=== PATIENT | female | born 1950 | race Caucasian/White ===

== ENCOUNTER 2016-05-29 12:09 | Day surgery (SDC) | payer MEDICARE, BC ==
[2016-05-29 12:54] VITALS: RESP 14; TEMP 97.5
[2016-05-29 13:45] VITALS: BP 141/83; PULSE 86
--- NOTE | 2016-05-29 14:07 | US ---
ULTRASOUND GUIDED FNA THYROID BIOPSY: CLINICAL HISTORY: Request for large right and large left thyroid nodule FINDINGS: The procedure was explained to the patient. The risks, complications, benefits and alternatives were discussed and any questions were answered. Informed consent was obtained. Patient was placed supin e on the ultrasound table and prepped and draped in the usual sterile fashion. Utilizing a 25 gauge needle, five passes were made into the requested two nodules. Patient was stable throughout the procedure. Pathology is pending. All elements of maximal barrier technique were utilized. IMPRESSION: 1. Successful ultrasound guided FNA thyroid biopsy.
--- NOTE | 2016-05-29 14:49 | US ---
EXAMINATION TYPE: US thyroid st tissue head/neck DATE OF EXAM: 05/29/2016 12:43 PM COMPARISON: NONE CLINICAL HISTORY: E04.1 thyroid nodule. GLAND SIZE: Right Lobe: 5.1 x 2.5 x 2.2 cm Overall Parenchyma: heterogenous Left Lobe: 4.1 x 1.8 x 1.6 cm Overall Parenchyma: slightly heterogenous Isthmus Thickness: 0.1 cm NODULES RIGHT: # of nodules measured on right: 2 1. 3.9 X 2.6 x 1.6 cm hypoechoic solid nodule at the mid pole with well-defined margins. This nodu le is wider than tall and shows intranodular vascularity. Prior size: no prior 2. 1.8 X 2.3 x 2.0 cm Complex solid nodule at the lower pole with well-defined margins. This nodule is wider than tall and shows intranodular vascularity. Prior size: no prior LEFT: # of nodules measured on left: 2 1. 2.8 X 1.4 x 1.4 cm Complex solid nodule at the mid pole with well-defined margins. This nodule is taller than wide and shows intranodular vascularity. Echogenic focus with shadowing seen within = 1.4 mm. Cystic lesion seen within = 0.6 x 0.6 x 0.5 cm Prior size: no prior 2. 1.2 X 0.7 x 0.5 cm hypoechoic solid nodule at the upper pole with well-defined margins. This nod ule is taller than wide and shows intranodular vascularity. Prior size: No prior ISTHMUS: # of nodules measured in the isthmus: 0 TECHNOLOGIST IMPRESSION: Bilateral neck scanned, no abnormal lymphadenopathy noted. Bilateral vascul ar nodules seen. IMPRESSION: Thyroid gland is upper limits of normal in size and heterogeneous in appearance with several greater than 1 cm nodules noted bilaterally as detailed above. Dominant nodules are sample at time of study, this report will be dictated separately.
== END 2016-05-29 13:51 | disposition home or self-care (01) ==
LOC: RADPROMAIN 12:09
PROVIDERS: ATTEND Surgery
DX: E07.89 Other specified disorders of thyroid (principal); E04.1 Nontoxic single thyroid nodule
CPT/HCPCS: 10022; 76536; 76942; 88173; 88305

== ENCOUNTER 2016-09-05 06:19 | Day surgery (SDC) | payer MEDICARE, BC ==
[2016-08-27 12:18] VITALS: BMI 23.6
--- NOTE | 2016-09-04 15:06 | P.GSHP ---
History of Present Illness H&P Date: 09/05/16 Chief Complaint: Multinodular goitre 66 yrs old female presented with neck swelling and dysphagia . TSH and free T4 levels were normal. US thyroid showed multiple nodules, largest were :3.8 cm nodule on right and 2.9 cm left thyroid nodule . She has noticed some "raspiness " in her voice. She has pain radiating to the right ear. This has resolved .No weight loss. No palpitations. No h/o radiation exposure. No family history of thyroid and parathyroid malignancy . S/P FNA : Right nodule 3.89 x 1.62 x 2.59 cm. Left nodule 2.80 x 1.37 x 3.5 cm. Final Pathologic Diagnosis A. THYROID, RIGHT, ASPIRATE: BLOOD AND RARE SCATTERED FOLLICULAR CELLS AND MACROPHAGES. NON-DIAGNOSTIC/UNSATISFACTORY FOR EVALUATION, BETHESDA CATEGORY I. B. THYROID, LEFT, ASPIRATE: FOLLICULAR LESION OF UNDETERMINED SIGNIFICANCE (FLUS ) WITH PROMINENT HRTHLE CELLS SUGGESTIVE OF A HRTHLE CELL LESION, BETHESDA CATEGORY III. - Review of Systems Comment: Constitutional: No fever, chills or rigors. No weight loss or loss of appetite. HEENT: No difficulty with hearing, vision and swallowing. Lymphatic: No axillary, inguinal and cervical swellings. Endocrine: Denies history of diabetes. Respiratory: No chest pain, shortness of breath, and cough. No hemoptysis. Cardiovascular: No palpitations, irregular HR Gastrointestinal: Denies heartburn. No change in bowel habits. No nausea or vomiting. Genitourinary: No increase in urinary frequency or urgency. No hematuria. Creatinine levels - 1.1-1.14 Musculoskeletal: No back pain, joint stiffness or pain. Neurologic: No history of seizure disorder and headaches. Psychiatric: Denies depression or anxiety . No suicidal ideation. Hematologic: Denies any abnormal mucosal bleeding or easy bruising. Past Medical History Past Medical History: Hyperlipidemia, Neurologic Disorder, Osteoarthritis (OA), Renal Disease, Thyroid Disorder Additional Past Medical History / Comment(s): Kidney Insufficiency, STAGE 2. Migraines occasionally. Thyroid Nodules. VARICOSE VEINS. History of Any Multi-Drug Resistant Organisms: None Reported Past Surgical History: Appendectomy, Orthopedic Surgery Additional Past Surgical History / Comment(s): RT Knee Surgery - meniscus removed. COLONOSCOPY Past Anesthesia/Blood Transfusion Reactions: Motion Sickness Smoking Status: Former smoker - Past Family History Father Family Medical History: Cancer Additional Family Medical History / Comment(s): colon Brother(s) Family Medical History: Renal Disease Additional Family Medical History / Comment(s): staghorn calcification on kidney Medications and Allergies Home Medications Medication Instructions Recorded Confirmed Type Cholecalciferol [Vitamin D3] 2,000 unit PO DAILY 05/22/16 09/05/16 History [place]-3 Fatty Acids/Fish Oil [Fish 1 each PO DAILY 05/22/16 09/05/16 History Oil 1,000 mg Softgel] Rosuvastatin [Crestor] 10 mg PO HS 05/22/16 09/05/16 History Cranberry Fruit Concentrate 8,400 mg PO DAILY 08/27/16 09/05/16 History [Cranberry] Sertraline [Zoloft] 50 mg PO HS 08/27/16 09/05/16 History Allergies Allergy/AdvReac Type Severity Reaction Status Date / Time atorvastatin [From Lipitor] AdvReac ELEV LIVER Verified 09/05/16 06:34 ENZYMES NSAIDS (Non-Steroidal AdvReac AVOIDS D/T Verified 09/05/16 06:34 Anti-Inflamma EFFECT ON KIDNEYS BANDAIDS Allergy RED, Uncoded 09/05/16 06:34 ITCHING ON SKIN Surgical - Exam Patient is a 66-year-old female. Constitutional: General Appearance: healthy-appearing, well-nourished, and well- developed. Level of Distress: NAD. Ambulation: ambulating normally. Psychiatric: Insight: good judgement. Orientation: to time, place, and person. Head: Head: normocephalic and atraumatic. Eyes: Lids and Conjunctivae: no discharge or pallor and non-injected. Sclerae: non-icteric. ENMT: Oropharynx: moist mucous membranes. Neck: Neck: supple and trachea midline. Lymph Nodes: no cervical LAD or supraclavicular LAD. Thyroid: tender and thyromegaly (Diffuse thyroid enlargement -right lobe>left). Lungs: Respiratory effort: no dyspnea. Auscultation: breath sounds normal. Abdomen: Bowel Sounds: normal. Inspection and Palpation: no tenderness or guarding and soft and non-distended. Musculoskeletal:: Motor Strength and Tone: normal and normal tone. Joints, Bones , and Muscles: normal movement of all extremities. Extremities: no cyanosis or edema. Neurologic: Gait and Station: normal gait and station. Cranial Nerves: grossly intact. Assessment and Plan (1) Multinodular goiter Status: Acute Plan: 1. US guided FNA bilateral thyroid nodules.Path reviewed. Radiology to evaluate for cervical lymph nodes - no abnormal looking neck lymphnodes . 2. Total thyroidectomy 3. Endocrinology consult - Dr. Francis 4. The risks, benfits and potential complications of total thyroidectomy discussed which includes bleeding, infection, transient or permanent hypocalcemia due to parathyroid gland injury , hypothyroidism requiring lifelong thyroid supplementation, recurrent laryngeal nerve injury and patient demonstrated understanding and willing to undergo the procesure. 1. Multinodular goiter E04.2: Nontoxic multinodular goiter 2. Benign essential hypertension I10: Essential (primary) hypertension HIGH BLOOD PRESSURE: CARE INSTRUCTIONS LEARNING ABOUT HIGH BLOOD PRESSURE 3. Hypercholesterolemia E78.00: Pure hypercholesterolemia, unspecifie
[~2016-09-05 06:19] MED LIST: DEXAMETHASONE SOD PHOSPHATE 10 MG/ML 1 ML VIAL IV ONE; HEPARIN SODIUM,PORCINE 5,000 UNIT/ML 1 ML VIAL SQ ONE; HYDROmorphone 1 MG/ML 1 ML SYRINGE IVP PRN; LACTATED RINGERS 1,000 ML IV SCH; ONDANSETRON 4 MG/2 ML VIAL IVP ONE; Pre Op ABX Message 1 EACH MISC MISCELLANE ONE
[2016-09-05] MEDS ORDERED: LIDOCAINE 1% 20 ML VIAL (10MG/ML) FOR IV START INTRADERMA ONE (06:53)
[2016-09-05] MEDS ORDERED: LIDOCAINE 1% INJ 10MG/ML (20 ML MDV) ONE (07:42)
[2016-09-05] MEDS ORDERED: ePHEDrine 50 MG/ML 1 ML AMP ONE (07:42)
[2016-09-05] MEDS ORDERED: fentaNYL (PF) 50 MCG/ML 2 ML AMP ONE (07:42)
[2016-09-05] MEDS ORDERED: SUCCINYLCHOLINE CHLORIDE 100 MG/5 ML SYR IV ONE (07:42)
[2016-09-05] MEDS ORDERED: MIDAZOLAM 2 MG/2 ML VIAL ONE (07:42)
[2016-09-05] MEDS ORDERED: PROPOFOL 10 MG/ML 20 ML VIAL IV ONE (07:42)
[2016-09-05] MEDS: ceFAZolin 2 GM in SODIUM CHLORIDE 0.9% 100 ML IVPB ONE ×2 (07:55→10:08)
[2016-09-05] MEDS ORDERED: LIDOCAINE 2% INJ 20 MG/ML SQ ONE (08:15)
[2016-09-05] MEDS ORDERED: LACTATED RINGERS 1,000 ML IV ONE ×2 (10:38)
--- NOTE | 2016-09-05 10:50 | P.OP ---
Date of Procedure: 09/05/16 Preoperative Diagnosis: Multinodular goitre Dysphagia Postoperative Diagnosis: Same Procedure(s) Performed: Total thyroidectomy with intraoperative recurrent laryngeal nerve monitoring Implants: Anesthesia: KO Surgeon: Rhonda Valenzuela Photograph Enlarger #1: Iker Ku Estimated Blood Loss (ml): 30 Pathology: other Condition: stable Disposition: PACU Indications for Procedure: 66 years old female presents with multinodular goiter and dysphagia. Informed consent obtained and patient elected to undergo total thyroidectomy Operative Findings: Right thyroid lobe was diffusely enlarged. The left thyroid lobe had a nodule in the lower pole. Bilateral recurrent nerves identified. 3 of the 4 parathyroid gland identified Description of Procedure:
[2016-09-05] MEDS: HYDROcodone/APAP 5-325MG 1 EACH TAB PO PRN ×2 (12:03→18:01)
[2016-09-06] MEDS: HYDROcodone/APAP 5-325MG 1 EACH TAB PO PRN (07:40)
[2016-09-06 07:58] VITALS: BP 122/68; PULSE 85; RESP 19; TEMP 97.9
--- NOTE | 2016-09-06 11:51 | P.DS ---
Providers Expected date of discharge: 09/06/16 Attending physician: Rhonda Valenzuela Primary care physician: [facility] Course: 66-year-old female presented with neck swelling and dysphagia. TSH and free T4 were normal. Ultrasound of the thyroid showed multiple nodules the largest 3.8 cm on the right and 2.9 centimeters on the left thyroid nodule. Patient also noted some raspiness to her voice. She stated should pain radiating to the right ear. This had resolved. There was no weight loss. No heart palpitations. No history of radiation exposure no family history of thyroid or parathyroid malignancy patient elected to undergo a total thyroidectomyotal with intraoperative recurrent laryngeal nerve monitoring on 09/05/2016 there were no postop events and patient was felt to be hemodynamically stable and appropriate proceed with a discharge on September 06 Blood pressure was ranging 122/68 to 95/58 heart rate in the 80s to 90s. Calcium level 8.8 on September 06. The admitting calcium 9.7 Impression discharge diagnosis Multinodular goitre Dysphagia Total thyroidectomy with intraoperative recurrent laryngeal nerve monitoring Nontoxic multinodular goiter THYROID, RIGHT, ASPIRATE: BLOOD AND RARE SCATTERED FOLLICULAR CELLS AND MACROPHAGES. NON-DIAGNOSTIC/UNSATISFACTORY FOR EVALUATION, BETHESDA CATEGORY I. THYROID, LEFT, ASPIRATE: FOLLICULAR LESION OF UNDETERMINED SIGNIFICANCE (FLUS) WITH PROMINENT HRTHLE CELLS SUGGESTIVE OF A HRTHLE CELL LESION, BETHESDA CATEGORY III. Benign essential hypertension The above impression and plan of care have been discussed and directed by signing physician. Yahaira Mariee nurse practitioner acting as scribe for signing physician. Plan - Discharge Summary New Discharge Prescriptions: New Levothyroxine Sodium 100 mcg PO DAILY #20 tablet Acetaminophen Tab [Tylenol Tab] 650 mg PO Q6H #30 tablet Continue [place]-3 Fatty Acids/Fish Oil [Fish Oil 1,000 mg Softgel] 1 each PO DAILY Cholecalciferol [Vitamin D3] 2,000 unit PO DAILY Rosuvastatin [Crestor] 10 mg PO HS Sertraline [Zoloft] 50 mg PO HS Cranberry Fruit Concentrate [Cranberry] 8,400 mg PO DAILY Discharge Medication List Cholecalciferol [Vitamin D3] 2,000 unit PO DAILY 05/22/16 [History] [place]-3 Fatty Acids/Fish Oil [Fish Oil 1,000 mg Softgel] 1 each PO DAILY [History] Rosuvastatin [Crestor] 10 mg PO HS 05/22/16 [History] Cranberry Fruit Concentrate [Cranberry] 8,400 mg PO DAILY 08/27/16 [History] Sertraline [Zoloft] 50 mg PO HS 08/27/16 [History] Acetaminophen Tab [Tylenol Tab] 650 mg PO Q6H #30 tablet 09/06/16 [Rx] Levothyroxine Sodium 100 mcg PO DAILY #20 tablet 09/06/16 [Rx] Follow up Appointment(s)/Referral(s): Rhonda Valenzuela MD [STAFF PHYSICIAN] - 09/17/16 9:40 am (You have an appointment with Dr Valenzuela on Saturday, September 17, 2016 at 9:40 am.) Ni Francis MD [STAFF PHYSICIAN] - 2 Weeks (Please call Dr Ni Francis's office on friday morning to make an appointment for 10 days.) Patient Instructions/Handouts: Total Thyroidectomy (DC) Activity/Diet/Wound Care/Special Instructions: Leave the dressing on until friday. Change dressing on friday. Keep the steri strips (white tapes) in place, do not remove them. You may cover your incision with a light dressing and use the paper tape to keep the dressing in place. You may change your dressing as needed. You may shower but avoid extending your neck upwards. No Driving, no heaving lifting, no stooping or bending, no house work. You make take tylenol for pain as needed. Call Dr Valenzuela immediately if you experience and numbness or tingling around our lips, mouth, face, or fingers. Call Dr Valenzuela if you develop a fever, difficulty swallowing, increase in drainage from you incision or if you have any concerns or questions. call Dr Ni Francis's office on friday to make an appointment to be seen in 10 days. Her number is [phone]. Discharge Disposition: HOME SELF-CARE
== END 2016-09-06 12:45 | disposition home or self-care (01) ==
LOC: OR 06:19 → 6PED 10:18 → OR 09-06 12:45
PROVIDERS: ATTEND Surgery
DX: E04.2 Nontoxic multinodular goiter (principal); R13.10 Dysphagia, unspecified; I10 Essential (primary) hypertension; E78.00 Pure hypercholesterolemia, unspecified; E78.5 Hyperlipidemia, unspecified; M19.90 Unspecified osteoarthritis, unspecified site; N28.9 Disorder of kidney and ureter, unspecified; Z79.899 Other long term (current) drug therapy; Z91.048 Other nonmedicinal substance allergy status; Z87.891 Personal history of nicotine dependence
CPT/HCPCS: 82310 ×2; 88307; 60240; J2001 ×2; J2250; J1644; J1100; J0690; J2405; J3010; J0330; J2704

== ENCOUNTER → 2016-09-11 | Outpatient (CLI) | payer MEDICARE, BC ==
[2016-09-11 14:21] LABS: Calcium 8.7 mg/dL (8.4-10.2)
== END | disposition home or self-care (01) ==
LOC: LABWHC1 13:36
PROVIDERS: ATTEND Surgery
DX: E04.1 Nontoxic single thyroid nodule (principal)
CPT/HCPCS: 36415; 82310; 84443

== ENCOUNTER → 2016-12-11 | Outpatient (CLI) | payer MEDICARE, BC ==
--- NOTE | 2016-12-12 09:44 | MM ---
Reason for exam: screening (asymptomatic). Last mammogram was performed 1 year and 10 months ago. History: Patient is postmenopausal. Physical Findings: A clinical breast exam by your physician is recommended on an annual basis and results should be correlated with mammographic findings. MG 3D Screening Mammo W/Cad Bilateral CC and MLO view(s) were taken. Prior study comparison: February 24, 2015, mammogram, performed at [facility]. November 01, 2013, mammogram, performed at [facility]. The breast tissue is heterogeneously dense. This may lower the sensitivity of mammography. There is an elongated low density mass in the upper outer quadrant at posterior depth. No suspicious abnormality in the right breast. ASSESSMENT: Incomplete: need additional imaging evaluation, BI-RAD 0 RECOMMENDATION: Special view mammogram of the left breast. If lesion persists on supplemental views, image directed ultrasound is recommended. [facility] will attempt to contact patient to return for supplemental views and ultrasound if indicated.
== END | disposition home or self-care (01) ==
LOC: RADMAMWWP 10:14
PROVIDERS: ATTEND Family Medicine
DX: Z12.31 Encounter for screening mammogram for malignant neoplasm of breast (principal)
CPT/HCPCS: 77063; G0202

== ENCOUNTER → 2016-12-20 | Outpatient (CLI) | payer MEDICARE, BC ==
--- NOTE | 2016-12-23 08:11 | MM ---
Reason for exam: additional evaluation requested from abnormal screening. Last mammogram was performed less than 1 month ago. History: Patient is postmenopausal. Physical Findings: Nurse did not find any significant physical abnormalities on exam. MG 3D Work Up W/Cad LT CC, MLO, ML, spot compression CC, and spot compression MLO view(s) were taken of the left breast. Prior study comparison: December 11, 2016, bilateral MG 3d screening mammo w/cad. February 24, 2015, mammogram, performed at [facility]. The breast tissue is heterogeneously dense. This may lower the sensitivity of mammography. No suspicious abnormality. Elongated asymmetry appears as a benign vessels. These results were verbally communicated with the patient and result sheet given to the patient on 12/20/16. ASSESSMENT: Benign, BI-RAD 2 RECOMMENDATION: Return to routine screening mammogram schedule for both breasts.
== END ==
LOC: RADMAMWWP 14:39
PROVIDERS: ATTEND Family Medicine
DX: R92.8 Other abnormal and inconclusive findings on diagnostic imaging of breast (principal)
CPT/HCPCS: G0206; G0279

== ENCOUNTER 2017-08-04 14:26 | Emergency (ER) | payer MEDICARE, BC ==
[2017-08-04 14:33] VITALS: RESP 18
[2017-08-04] MEDS ORDERED: SODIUM CHLORIDE 0.9% 500 ML IV STA (14:56)
[2017-08-04] MEDS ORDERED: ADENOSINE 3 MG/ML 2 ML VIAL IVP STA (14:56)
--- NOTE | 2017-08-04 15:00 | ED ---
Arrhythmia/Palpitations HPI - General Chief Complaint: Arrhythmia/Palpitations Stated Complaint: palpitations Time Seen by Provider: 08/04/17 14:30 Source: patient, RN notes reviewed Mode of arrival: wheelchair Limitations: no limitations - History of Present Illness Initial Comments: This is a 67-year-old female presents emergency Department complaining that she' s feeling heart palpitations. Patient states she has had in the past but usually comes and goes. Patient states that he is calm and is been ongoing. Patient states she has had no chest pain but she can feel her heart racing and it makes her little bit short of breath. Patient denies any leg swelling or calf pain. Patient denies any recent cough. Patient denies any fever or chills. Patient denies lightheadedness or dizziness. Patient denies abdominal pain patient denies nausea vomiting diarrhea. - Related Data Home Medications Medication Instructions Recorded Confirmed Cholecalciferol [Vitamin D3] 2,000 unit PO DAILY 05/22/16 09/05/16 [place]-3 Fatty Acids/Fish Oil [Fish 1 each PO DAILY 05/22/16 09/05/16 Oil 1,000 mg Softgel] Rosuvastatin [Crestor] 10 mg PO HS 05/22/16 09/05/16 Cranberry Fruit Concentrate 8,400 mg PO DAILY 08/27/16 09/05/16 [Cranberry] Sertraline [Zoloft] 50 mg PO HS 08/27/16 09/05/16 Previous Rx's Medication Instructions Recorded Acetaminophen Tab [Tylenol Tab] 650 mg PO Q6H #30 tablet 09/06/16 Levothyroxine Sodium 100 mcg PO DAILY #20 tablet 09/06/16 Allergies Allergy/AdvReac Type Severity Reaction Status Date / Time atorvastatin [From Lipitor] AdvReac ELEV LIVER Verified 08/04/17 14:33 ENZYMES NSAIDS (Non-Steroidal AdvReac AVOIDS D/T Verified 08/04/17 14:33 Anti-Inflamma EFFECT ON KIDNEYS BANDAIDS Allergy RED, Uncoded 08/04/17 14:33 ITCHING ON SKIN Review of Systems ROS Statement: Those systems with pertinent positive or pertinent negative responses have been documented in the HPI. ROS Other: All systems not noted in ROS Statement are negative. Past Medical History Past Medical History: Hyperlipidemia, Neurologic Disorder, Osteoarthritis (OA), Renal Disease, Thyroid Disorder Additional Past Medical History / Comment(s): Kidney Insufficiency, STAGE 2. Migraines occasionally. Thyroid Nodules. VARICOSE VEINS. Thyroid removal History of Any Multi-Drug Resistant Organisms: None Reported Past Surgical History: Appendectomy, Orthopedic Surgery Additional Past Surgical History / Comment(s): RT Knee Surgery - meniscus removed. COLONOSCOPY Past Anesthesia/Blood Transfusion Reactions: Motion Sickness Past Psychological History: Anxiety Smoking Status: Former smoker Past Alcohol Use History: None Reported Past Drug Use History: None Reported - Past Family History Father Family Medical History: Cancer Additional Family Medical History / Comment(s): colon Brother(s) Family Medical History: Renal Disease Additional Family Medical History / Comment(s): staghorn calcification on kidney General Exam - General Exam Comments Initial Comments: GENERAL: Patient is well-developed and well-nourished. Patient is nontoxic and well- hydrated and is in mild distress. ENT: Neck is soft and supple. No significant lymphadenopathy is noted. Oropharynx is clear. Moist mucous membranes. Neck has full range of motion without eliciting any pain. EYES: The sclera were anicteric and conjunctiva were pink and moist. Extraocular movements were intact and pupils were equal round and reactive to light. Eyelids were unremarkable. PULMONARY: Unlabored respirations. Good breath sounds bilaterally. No audible rales rhonchi or wheezing was noted. CARDIOVASCULAR: Patient's heart rate is at 150 beats a minute and is regular ABDOMEN: Soft and nontender with normal bowel sounds. No palpable organomegaly was noted. There is no palpable pulsatile mass. SKIN: Skin is clear with no lesions or rashes and otherwise unremarkable. NEUROLOGIC: Patient is alert and oriented x3. Cranial nerves II through XII are grossly intact. Motor and sensory are also intact. Normal speech, volume and content. Symmetrical smile. MUSCULOSKELETAL: Normal extremities with adequate strength and full range of motion. No lower extremity swelling or edema. No calf tenderness. LYMPHATICS: No significant lymphadenopathy is noted PSYCHIATRIC: Normal psychiatric evaluation. Limitations: no limitations Course Vital Signs 08/04/17 08/04/17 14:31 15:16 Temperature 98.6 F Pulse Rate 79 96 Respiratory 18 Rate Blood Pressure 121/91 O2 Sat by Pulse 98 Oximetry Medical Decision Making - Medical Decision Making EKG shows SVT at 145 bpm QRS is 92 QT interval 288 QTC is 447. This EKG shows no ST segment elevation or depression I gave the patient adenosine 6 mg and the patient converted to a normal sinus rhythm. Repeat EKG was done and showed a normal sinus rhythm at 91 bpm GA interval is 140 QRS is 70 QT interval 364 QTC is 447. Patient's EKG shows no ST segment elevation or depression. Patient remained in sinus rhythm throughout the duration of her ER stay. - Lab Data Result diagrams: 08/04/17 15:13 08/04/17 15:13 Lab Results 08/04/17 08/04/17 08/04/17 Range/Units 15:13 15:13 15:13 WBC 6.5 (3.8-10.6) k/uL RBC 4.58 (3.80-5.40) m/uL Hgb 14.1 (11.4-16.0) gm/dL Hct 42.1 (34.0-46.0) % MCV 92.0 (80.0-100.0) fL MCH 30.8 (25.0-35.0) pg MCHC 33.5 (31.0-37.0) g/dL RDW 13.0 (11.5-15.5) % Plt Count 218 (150-450) k/uL Neutrophils % 59 % Lymphocytes % 28 % Monocytes % 7 % Eosinophils % 3 % Basophils % 1 % Neutrophils # 3.8 (1.3-7.7) k/uL Lymphocytes # 1.8 (1.0-4.8) k/uL Monocytes # 0.4 (0-1.0) k/uL Eosinophils # 0.2 (0-0.7) k/uL Basophils # 0.1 (0-0.2) k/uL PT 9.6 (9.0-12.0) sec INR 1.0 (<1.2) APTT 23.7 (22.0-30.0) sec Sodium 141 (137-145) mmol/L Potassium 4.4 (3.5-5.1) mmol/L Chloride 106 (98-107) mmol/L Carbon Dioxide 22 (22-30) mmol/L Anion Gap 13 mmol/L BUN 17 (7-17) mg/dL Creatinine 1.00 (0.52-1.04) mg/dL Est GFR (CKD-EPI)AfAm 67 (>60 ml/min/1.73 sqM) Est GFR (CKD-EPI)NonAf 58 (>60 ml/min/1.73 sqM) Glucose 154 H (74-99) mg/dL Calcium 9.2 (8.4-10.2) mg/dL Magnesium 2.0 (1.6-2.3) mg/dL Total Bilirubin 0.5 (0.2-1.3) mg/dL AST 36 (14-36) U/L ALT 41 (9-52) U/L Alkaline Phosphatase 39 (38-126) U/L Total Protein 6.6 (6.3-8.2) g/dL Albumin 4.0 (3.5-5.0) g/dL Disposition Clinical Impression: Supraventricular tachycardia Disposition: HOME SELF-CARE Condition: Good Instructions: Supraventricular Tachycardia (ED) Is patient prescribed a controlled substance at d/c from ED?: No Referrals: Francisco William MD [Primary Care Provider] - 1-2 days Ty Turcios MD [STAFF PHYSICIAN] - 1-2 days Time of Disposition: 15:56
[2017-08-04 15:36] LABS: Basophils # (A) 0.1 k/uL (0-0.2); Basophils % (A) 1 %; Eosinophils # (A) 0.2 k/uL (0-0.7); Eosinophils % (A) 3 %; HCT 42.1 % (34.0-46.0); HGB 14.1 gm/dL (11.4-16.0); Lymphocytes # (A) 1.8 k/uL (1.0-4.8); Lymphocytes % (A) 28 %; MCH 30.8 pg (25.0-35.0); MCHC 33.5 g/dL (31.0-37.0); Monocytes # (A) 0.4 k/uL (0-1.0); Monocytes % (A) 7 %; Neutrophils # (A) 3.8 k/uL (1.3-7.7); Neutrophils % (A) 59 %; Platelet Count 218 k/uL (150-450); RBC 4.58 m/uL (3.80-5.40); WBC 6.5 k/uL (3.8-10.6)
[2017-08-04 15:45] LABS: Partial Thromboplastin Time 23.7 sec (22.0-30.0); Prothrombin Time 9.6 sec (9.0-12.0)
[2017-08-04 15:48] LABS: Calcium 9.2 mg/dL (8.4-10.2); Potassium 4.4 mmol/L (3.5-5.1); Total Bilirubin 0.5 mg/dL (0.2-1.3); Total Protein 6.6 g/dL (6.3-8.2)
--- NOTE | 2017-08-04 15:53 | XR ---
EXAMINATION TYPE: XR chest 2V DATE OF EXAM: 08/04/2017 COMPARISON: NONE HISTORY: Dysrhythmia with chest and shoulder pain TECHNIQUE: Frontal and lateral views of the chest are obtained. FINDINGS: There is no focal air space opacity, pleural effusion, or pneumothorax seen. The cardiac silhouette size is within normal limits. The osseous structures are intact. Slightly asymmetric rig ht peribronchial cuffing in comparison to the left could relate to bronchitis. IMPRESSION: No focal consolidation to suggest pneumonia. Slight right peribronchial cuffing could re late to reactive airway disease or bronchitis.
[2017-08-04 16:07] LABS: Creatine Kinase MB 1.5 ng/mL (0.0-2.4); Troponin I 0.012 ng/mL (0.000-0.034)
[2017-08-04 17:01] VITALS: BP 146/80; PULSE 87; TEMP 98
== END 2017-08-04 17:01 | disposition home or self-care (01) ==
LOC: EC 14:26
DX: I47.1 Supraventricular tachycardia (principal); E78.5 Hyperlipidemia, unspecified; F41.9 Anxiety disorder, unspecified; Z87.891 Personal history of nicotine dependence; Z90.49 Acquired absence of other specified parts of digestive tract; Z98.890 Other specified postprocedural states; Z79.899 Other long term (current) drug therapy; Z88.6 Allergy status to analgesic agent; Z88.8 Allergy status to other drugs, medicaments and biological substances; Z91.048 Other nonmedicinal substance allergy status
CPT/HCPCS: 99285; 96374; 36415; 93005; 80053; 82550; 82553; 83735; 84484; 85025; 85610; 85730; 71046; J0153

== ENCOUNTER → 2017-09-29 | Outpatient (CLI) | payer MEDICARE, BC ==
--- NOTE | 2017-09-29 17:49 | US ---
EXAMINATION TYPE: US kidneys/renal and bladder DATE OF EXAM: 09/29/2017 COMPARISON: NONE CLINICAL HISTORY: N18.3 Chronic kidney disease stage 3. EXAM MEASUREMENTS: Right Kidney: 8.3 x 3.3 x 3.6 cm Left Kidney: 8.5 x 5.0 x 4.4 cm Right Kidney: No hydronephrosis or masses seen, measures small Left Kidney: Inferior pole obscured by bowel gas, no hydro or mass identified, measures small Bladder: wnl Bilateral Jets seen: Yes There is no evidence for hydronephrosis at this point in time. No nephrolithiasis is seen. No jh s are identified. The urinary bladder is anechoic. Bilateral ureteral jets are seen. IMPRESSION: No renal mass or obstruction. Kidneys are small consistent with some degree of chronic renal failure.
== END | disposition home or self-care (01) ==
LOC: RADUSWWP 16:13
PROVIDERS: ATTEND Internal Medicine Nephrology
DX: N18.3 Chronic kidney disease, stage 3 (moderate) (principal)
CPT/HCPCS: 76770

== ENCOUNTER 2017-11-08 13:58 | Emergency (ER) | payer MEDICARE, BC ==
[2017-11-08 14:22] VITALS: RESP 18
[2017-11-08] MEDS ORDERED: SODIUM CHLORIDE 0.9% 1,000 ML IV STA (15:00)
--- NOTE | 2017-11-08 15:01 | ED ---
General Adult HPI - General Chief complaint: Abdominal Pain Stated complaint: abd pain Time Seen by Provider: 11/08/17 14:50 Source: patient, RN notes reviewed Mode of arrival: ambulatory Limitations: no limitations - History of Present Illness Initial comments: Patient 67-year-old female presenting to the emergency room today with a chief complaint of abdominal pain that started yesterday morning. Patient says she's experiencing some sharp type pain located in the right upper quadrant and epigastric areas. Patient states she's noticed that it's worse with certain movements. She gives an example if she bends down to pick something up. Patient denies any other associated symptoms or complaints. Patient denies any recent fever, chills, shortness of breath, chest pain, back pain, nausea or vomiting, numbness or tingling, dysuria or hematuria, constipation or diarrhea, headaches or visual changes, or any other complaints. - Related Data Home Medications Medication Instructions Recorded Confirmed Cholecalciferol [Vitamin D3] 2,000 unit PO DAILY 05/22/16 09/05/16 Thornton-3 Fatty Acids/Fish Oil [Fish 1 each PO DAILY 05/22/16 09/05/16 Oil 1,000 mg Softgel] Rosuvastatin [Crestor] 10 mg PO HS 05/22/16 09/05/16 Cranberry Fruit Concentrate 8,400 mg PO DAILY 08/27/16 09/05/16 [Cranberry] Sertraline [Zoloft] 50 mg PO HS 08/27/16 09/05/16 Previous Rx's Medication Instructions Recorded Acetaminophen Tab [Tylenol Tab] 650 mg PO Q6H #30 tablet 09/06/16 Levothyroxine Sodium 100 mcg PO DAILY #20 tablet 09/06/16 Allergies Allergy/AdvReac Type Severity Reaction Status Date / Time atorvastatin [From Lipitor] AdvReac ELEV LIVER Verified 11/08/17 14:22 ENZYMES NSAIDS (Non-Steroidal AdvReac AVOIDS D/T Verified 11/08/17 14:22 Anti-Inflamma EFFECT ON KIDNEYS BANDAIDS Allergy RED, Uncoded 11/08/17 14:22 ITCHING ON SKIN Review of Systems ROS Statement: Those systems with pertinent positive or pertinent negative responses have been documented in the HPI. ROS Other: All systems not noted in ROS Statement are negative. Past Medical History Past Medical History: Hyperlipidemia, Neurologic Disorder, Osteoarthritis (OA), Renal Disease, Thyroid Disorder Additional Past Medical History / Comment(s): Kidney Insufficiency, STAGE 2. Migraines occasionally. Thyroid Nodules. VARICOSE VEINS. Thyroid removal History of Any Multi-Drug Resistant Organisms: None Reported Past Surgical History: Appendectomy, Orthopedic Surgery Additional Past Surgical History / Comment(s): RT Knee Surgery - meniscus removed. COLONOSCOPY Past Anesthesia/Blood Transfusion Reactions: Motion Sickness Past Psychological History: Anxiety Smoking Status: Former smoker Past Alcohol Use History: None Reported Past Drug Use History: None Reported - Past Family History Father Family Medical History: Cancer Additional Family Medical History / Comment(s): colon Brother(s) Family Medical History: Renal Disease Additional Family Medical History / Comment(s): staghorn calcification on kidney General Exam - General Exam Comments Initial Comments: General: The patient is awake and alert, in no distress, and does not appear acutely ill. Eye: Pupils are equal, round and reactive to light, extra-ocular movements are intact. No nystagmus. There is normal conjunctiva bilaterally. No signs of icterus. Ears, nose, mouth and throat: There are moist mucous membranes and no oral lesions. Neck: The neck is supple, there is no tenderness or JVD. Cardiovascular: There is a regular rate and rhythm. No murmur, rub or gallop is appreciated. Respiratory: Lungs are clear to auscultation, respirations are non-labored, breath sounds are equal. No wheezes, stridor, rales, or rhonchi. Gastrointestinal: Abdomen is soft on palpation. Patient does have mild tenderness right upper quadrant with increased tenderness in epigastric area. No rebound, guarding or CVA tenderness. Musculoskeletal: Normal ROM, no tenderness. Sensation intact. Neurological: A&O x 3. CN II-XII intact, There are no obvious motor or sensory deficits. Coordination appears grossly intact. Speech is normal. Skin: Skin is warm and dry and no rashes or lesions are noted. Psychiatric: Cooperative, appropriate mood & affect, normal judgment. Limitations: no limitations Course Vital Signs 11/08/17 11/08/17 14:19 16:44 Temperature 98.6 F Pulse Rate 92 67 Respiratory 18 18 Rate Blood Pressure 127/77 148/83 O2 Sat by Pulse 96 96 Oximetry EKG Findings - EKG Comments: EKG Findings:: EKG performed at 1558: Shows a normal sinus rhythm at 65 bpm. W[place] interval is 132. QRS is 78. QT/QTc is 428/445. No acute ST changes. Medical Decision Making - Medical Decision Making Patient reexamined at this time shows no signs of distress. Patient's labs been reviewed are unremarkable. Patient's EKG shows normal sinus rhythm. Patient's pain located to the epigastric and right upper quadrants. Admits worse with movement and has been present for the past 2 days. Patient's ultrasound is unremarkable. Sinuses symptoms of gallbladder disease versus gastritis versus peptic ulcer versus muscular skeletal were discussed. Patient is comfortable being discharged at this time. Patient is advised follow-up the family doctor. Advised Tylenol for pain. Advised returning if symptoms increase or worsen. - Lab Data Result diagrams: 11/08/17 16:02 11/08/17 16:02 Lab Results 11/08/17 11/08/17 11/08/17 Range/Units 16:02 16:02 16:02 WBC 6.2 (3.8-10.6) k/uL RBC 4.43 (3.80-5.40) m/uL Hgb 13.2 (11.4-16.0) gm/dL Hct 40.4 (34.0-46.0) % MCV 91.3 (80.0-100.0) fL MCH 29.8 (25.0-35.0) pg MCHC 32.6 (31.0-37.0) g/dL RDW 13.4 (11.5-15.5) % Plt Count 183 (150-450) k/uL Neutrophils % 62 % Lymphocytes % 25 % Monocytes % 8 % Eosinophils % 2 % Basophils % 1 % Neutrophils # 3.9 (1.3-7.7) k/uL Lymphocytes # 1.6 (1.0-4.8) k/uL Monocytes # 0.5 (0-1.0) k/uL Eosinophils # 0.1 (0-0.7) k/uL Basophils # 0.0 (0-0.2) k/uL Sodium 139 (137-145) mmol/L Potassium 4.1 (3.5-5.1) mmol/L Chloride 108 H (98-107) mmol/L Carbon Dioxide 25 (22-30) mmol/L Anion Gap 6 mmol/L BUN 17 (7-17) mg/dL Creatinine 0.96 (0.52-1.04) mg/dL Est GFR (CKD-EPI)AfAm 70 (>60 ml/min/1.73 sqM) Est GFR (CKD-EPI)NonAf 61 (>60 ml/min/1.73 sqM) Glucose 86 (74-99) mg/dL Calcium 9.0 (8.4-10.2) mg/dL Total Bilirubin 0.6 (0.2-1.3) mg/dL AST 30 (14-36) U/L ALT 34 (9-52) U/L Alkaline Phosphatase 39 (38-126) U/L Total Creatine Kinase 75 (30-135) U/L CK-MB (CK-2) 0.9 (0.0-2.4) ng/mL CK-MB (CK-2) Rel Index 1.2 Troponin I <0.012 (0.000-0.034) ng/mL Total Protein 6.3 (6.3-8.2) g/dL Albumin 3.7 (3.5-5.0) g/dL Amylase 77 (30-110) U/L Lipase 228 (23-300) U/L Urine Color Urine Appearance (Clear) Urine pH (5.0-8.0) Ur Specific Pike (1.001-1.035) Urine Protein (Negative) Urine Glucose (UA) (Negative) Urine Ketones (Negative) Urine Blood (Negative) Urine Nitrite (Negative) Urine Bilirubin (Negative) Urine Urobilinogen (<2.0) mg/dL Ur Leukocyte Esterase (Negative) Urine RBC (0-5) /hpf Urine WBC (0-5) /hpf Ur Squamous Epith Cells (0-4) /hpf Urine Bacteria (None) /hpf 11/08/17 Range/Units 16:02 WBC (3.8-10.6) k/uL RBC (3.80-5.40) m/uL Hgb (11.4-16.0) gm/dL Hct (34.0-46.0) % MCV (80.0-100.0) fL MCH (25.0-35.0) pg MCHC (31.0-37.0) g/dL RDW (11.5-15.5) % Plt Count (150-450) k/uL Neutrophils % % Lymphocytes % % Monocytes % % Eosinophils % % Basophils % % Neutrophils # (1.3-7.7) k/uL Lymphocytes # (1.0-4.8) k/uL Monocytes # (0-1.0) k/uL Eosinophils # (0-0.7) k/uL Basophils # (0-0.2) k/uL Sodium (137-145) mmol/L Potassium (3.5-5.1) mmol/L Chloride (98-107) mmol/L Carbon Dioxide (22-30) mmol/L Anion Gap mmol/L BUN (7-17) mg/dL Creatinine (0.52-1.04) mg/dL Est GFR (CKD-EPI)AfAm (>60 ml/min/1.73 sqM) Est GFR (CKD-EPI)NonAf (>60 ml/min/1.73 sqM) Glucose (74-99) mg/dL Calcium (8.4-10.2) mg/dL Total Bilirubin (0.2-1.3) mg/dL AST (14-36) U/L ALT (9-52) U/L Alkaline Phosphatase (38-126) U/L Total Creatine Kinase (30-135) U/L CK-MB (CK-2) (0.0-2.4) ng/mL CK-MB (CK-2) Rel Index Troponin I (0.000-0.034) ng/mL Total Protein (6.3-8.2) g/dL Albumin (3.5-5.0) g/dL Amylase (30-110) U/L Lipase (23-300) U/L Urine Color Yellow Urine Appearance Clear (Clear) Urine pH 5.5 (5.0-8.0) Ur Specific Pike 1.012 (1.001-1.035) Urine Protein Negative (Negative) Urine Glucose (UA) Negative (Negative) Urine Ketones Negative (Negative) Urine Blood Moderate H (Negative) Urine Nitrite Negative (Negative) Urine Bilirubin Negative (Negative) Urine Urobilinogen <2.0 (<2.0) mg/dL Ur Leukocyte Esterase Small H (Negative) Urine RBC 7 H (0-5) /hpf Urine WBC 1 (0-5) /hpf Ur Squamous Epith Cells <1 (0-4) /hpf Urine Bacteria Rare H (None) /hpf Disposition Clinical Impression: Abdominal pain Disposition: HOME SELF-CARE Condition: Good Instructions: Abdominal Pain (ED) Additional Instructions: Please use medication as discussed. Please follow-up with family doctor in the next 2 days of symptoms have not improved. Please return to emergency room if the symptoms increase or worsen or for any other concerns. Is patient prescribed a controlled substance at d/c from ED?: No Referrals: Francisco William MD [Primary Care Provider] - 1-2 days Time of Disposition: 17:42
--- NOTE | 2017-11-08 16:12 | US ---
EXAMINATION TYPE: US abdomen limited DATE OF EXAM: 11/08/2017 COMPARISON: NONE CLINICAL HISTORY: 67-year-old female Pain. RUQ pain x 2 days; ate meal at noon today TECHNIQUE: Multiple sonographic images of the right upper quadrant are obtained. FINDINGS: EXAM MEASUREMENTS: Liver Length: 13.3 cm Gallbladder Wall: 0.1 cm CBD: 0.5 cm Right Kidney: 9.5 x 4.2 x 4.8 cm People Manager notes: US exam is technically limited by overlying bowel gas. Pancreas: wnl; prominent duct is noted at 2.6mm, but limits of normal in caliber. The pancreatic gary l is suboptimally visualized due to shadowing from bowel gas. Liver: wnl Gallbladder: wnl Evidence for sonographic Andrews's sign: no CBD: wnl Right Kidney: Extrarenal pelvis without hydronephrosis. IMPRESSION: No specific sonographic abnormality of the right upper quadrant.
[2017-11-08 16:14] LABS: Basophils % (A) 1 %; Eosinophils # (A) 0.1 k/uL (0-0.7); Eosinophils % (A) 2 %; HCT 40.4 % (34.0-46.0); HGB 13.2 gm/dL (11.4-16.0); Lymphocytes # (A) 1.6 k/uL (1.0-4.8); Lymphocytes % (A) 25 %; MCH 29.8 pg (25.0-35.0); MCHC 32.6 g/dL (31.0-37.0); MCV 91.3 fL (80.0-100.0); Mean Platelet Volume 7.2; Monocytes # (A) 0.5 k/uL (0-1.0); Monocytes % (A) 8 %; Neutrophils # (A) 3.9 k/uL (1.3-7.7); Neutrophils % (A) 62 %; Platelet Count 183 k/uL (150-450); RBC 4.43 m/uL (3.80-5.40); RDW 13.4 % (11.5-15.5); WBC 6.2 k/uL (3.8-10.6)
[2017-11-08 16:15] LABS: Appearance,Urine Clear (Clear); Bacteria,Urine Rare /hpf; Bilirubin,Urine Negative (Negative); Blood,Urine Moderate (Negative); Color,Urine Yellow; Glucose,Urine (UA) Negative (Negative); Ketones,Urine Negative (Negative); Leukocyte Esterase,Urine Small (Negative); Nitrite,Urine Negative (Negative); PH, Urine 5.5 (5.0-8.0); Protein,Urine Negative (Negative); RBC,Urine 7 /hpf (0-5); Specific Gravity,Urine 1.012 (1.001-1.035); Squamous Epithelial Cell,Urine <1 /hpf (0-4); Urobilinogen,Urine <2.0 mg/dL (<2.0); WBC,Urine 1 /hpf (0-5)
[2017-11-08 16:26] LABS: Albumin 3.7 g/dL (3.5-5.0); Potassium 4.1 mmol/L (3.5-5.1); Total Bilirubin 0.6 mg/dL (0.2-1.3); Total Protein 6.3 g/dL (6.3-8.2)
[2017-11-08 16:39] LABS: Creatine Kinase 75 U/L (30-135)
[2017-11-08 16:50] LABS: Creatine Kinase MB 0.9 ng/mL (0.0-2.4); Troponin I <0.012 ng/mL (0.000-0.034)
[2017-11-08 18:10] VITALS: BP 129/74; PULSE 69; TEMP 97.9
== END 2017-11-08 18:10 | disposition home or self-care (01) ==
LOC: EC 13:58
DX: R10.11 Right upper quadrant pain (principal); R10.13 Epigastric pain; E78.5 Hyperlipidemia, unspecified; F41.9 Anxiety disorder, unspecified; Z79.899 Other long term (current) drug therapy; Z87.891 Personal history of nicotine dependence; Z88.6 Allergy status to analgesic agent; Z88.8 Allergy status to other drugs, medicaments and biological substances
CPT/HCPCS: 36415; 76705; 80053; 81001; 82150; 82550; 82553; 83690; 84484; 85025; 93005; 96360; 99284

== ENCOUNTER → 2020-11-15 | Outpatient (CLI) | payer MEDICARE, BC ==
--- NOTE | 2020-11-15 16:26 | CT ---
CT CHEST FOR PULMONARY EMBOLISM. EXAMINATION TYPE: CT angio chest DATE OF EXAM: 11/15/2020 INDICATION: difficulty breathing CT DLP: 177.3 mGycm, Automated exposure control for dose reduction was used. CONTRAST: Patient injected with 80cc mL of Isovue 370. COMPARISON: None TECHNIQUE: CT of the chest is performed on a spiral scan at 2 mm thick sections. Study is performed with intravenous contrast timed for evaluation for pulmonary embolism. This will limit additional po rtions of the evaluation. 3-D MIP images reconstructed by the technologist are reviewed on the compu ter in the coronal and sagittal planes. FINDINGS: No persistent filling defects are evident to suggest an acute pulmonary embolism. No mediastinal or hilar adenopathy enlarged by CT criteria is evident. The ascending aorta diameter at the level of the main pulmonary artery is 3.2 cm. The main pulmonary artery diameter at the bifur cation is 2.5 cm. There appears to be some apical scarring present bilaterally since there is some streak opacity at th e left lung base likely is related to atelectasis Limited CT section through the upper abdomen are unremarkable. IMPRESSIONS: 1. No acute pulmonary embolus. 2. No acute pulmonary process.
[2020-11-16 14:10] LABS: Alt. alternata IgE Class CLASS 0; Alternaria alternata IgE <0.10 kU/L (<0.10); Asperg. fumagatus IgE <0.10 kU/L (<0.10); Asperg. fumagatus IgE Class CLASS 0; Candida albicans IgE Class CLASS 0; Clad herbarum IgE <0.10 kU/L (<0.10); Clad herbarum IgE Class CLASS 0; Latex IgE Class CLASS 0; Mucor racemosus IgE <0.10 kU/L (<0.10); Mucor racemosus IgE Class CLASS 0; Penicillium chrysogenum IgE <0.10 kU/L (<0.10); Penicillium chrysogenum IgE Cl CLASS 0
== END ==
LOC: RADCTMAIN 15:14
PROVIDERS: ATTEND Internal Medicine Sleep Medicine
DX: R06.09 Other forms of dyspnea (principal); B44.81 Allergic bronchopulmonary aspergillosis
CPT/HCPCS: 86003; 86001; 82565; 84520; 86609; 86606; 82785; 71275; 36415; Q9967

== ENCOUNTER → 2021-03-07 | Outpatient (CLI) | payer MEDICARE, BC ==
--- NOTE | 2021-03-09 11:27 | MM ---
Reason for exam: screening (asymptomatic). Last mammogram was performed 1 year and 5 months ago. History: Patient is postmenopausal. Physical Findings: A clinical breast exam by your physician is recommended on an annual basis and results should be correlated with mammographic findings. MG 3D Screening Mammo W/Cad Bilateral CC and MLO view(s) were taken. Prior study comparison: October 06, 2019, bilateral MG 3d screening mammo w/cad. December 20, 2016, left breast MG 3d work up w/cad LT. There are scattered fibroglandular densities. No significant changes when compared with prior studies. ASSESSMENT: Negative, BI-RAD 1 RECOMMENDATION: Routine screening mammogram of both breasts in 1 year.
== END | disposition home or self-care (01) ==
LOC: RADMAMWWP 13:17
PROVIDERS: ATTEND Family Medicine
DX: Z12.31 Encounter for screening mammogram for malignant neoplasm of breast (principal); Z78.0 Asymptomatic menopausal state
CPT/HCPCS: 77063; 77067

== ENCOUNTER → 2022-06-13 | Outpatient (CLI) | payer MEDICARE, BC ==
[2022-06-13 21:24] LABS: Basophils # (A) 0.05 X 10*3/uL (0.00-0.10); Basophils % (A) 0.8 %; Eosinophils # (A) 0.23 X 10*3/uL (0.04-0.35); Eosinophils % (A) 3.8 %; HCT 40.1 % (37.2-46.3); HGB 12.8 g/dL (12.0-15.0); Immature Grans, Automated 0.2 %; Lymphocytes # (A) 1.62 X 10*3/uL (0.90-5.00); Lymphocytes % (A) 26.8 %; MCHC 31.9 g/dL (32.0-37.0); MCV 93.9 fL (80.0-97.0); Mean Platelet Volume 11.4 fL (9.5-12.2); Monocytes % (A) 8.3 %; NRBC Per 100 WBC 0 /100 WBCS (0.0-0.0); Neutrophils # (A) 3.64 X 10*3/uL (1.80-7.70); Neutrophils % (A) 60.1 %; Platelet Count 204 X 10*3/uL (140-440); RBC 4.27 X 10*6/uL (4.10-5.20); RDW 12.8 % (11.5-14.5); WBC 6.05 X 10*3/uL (4.50-10.00)
[2022-06-13 22:39] LABS: African American GFR (CKD) 59.2 (60.0-200.0); Albumin 4.4 g/dL (3.8-4.9); Albumin/Globulin Ratio 1.88 (1.60-3.17); Anion Gap 10.9 mmol/L (10.00-18.00); BUN/Creat Ratio 11.87 Ratio (12.00-20.00); Blood Urea Nitrogen 12.7 mg/dL (9.0-27.0); Calcium 9.5 mg/dL (8.7-10.3); Globulin 2.4 g/dL (1.6-3.3); Non-African American GFR(CKD) 51.1 (60.0-200.0); Potassium 3.8 mmol/L (3.5-5.5); Total Bilirubin 0.5 mg/dL (0.30-1.20); Total Protein 6.8 g/dL (6.2-8.2)
--- NOTE | 2022-06-14 07:50 | MM ---
Reason for Exam: Screening (asymptomatic). Last mammogram was performed 1 year(s) and 4 month(s) ago. Patient History: Menarche at age 11. First Full-Term at age 19. Postmenopausal. Risk Values: Julianne 5 year model risk: 1.6%. NCI Lifetime model risk: 3.7%. Prior Study Comparison: 12/20/2016 Left Diagnostic Mammogram, [facility]. 10/06/2019 Bilateral Screening Mammogram, [facility]. 03/07/2021 Bilateral Screening Mammogram, [facility]. Tissue Density: The breast tissue is heterogeneously dense. This may lower the sensitivity of mammography. Findings: Analyzed By CAD. There is occasional scattered tiny benign-appearing punctate calcifications throughout the bilateral breasts. There is no suspicious group of microcalcifications or new suspicious mass in either breast. Overall Assessment: Benign, BI-RAD 2 Management: Screening Mammogram of both breasts in 1 year. A clinical breast exam by your physician is recommended on an annual basis and results should be correlated with mammographic findings. Electronically signed and approved by: Sal Cano M.D.
== END | disposition home or self-care (01) ==
LOC: RADMAMWWP 13:11
PROVIDERS: ATTEND Family Medicine
DX: Z12.31 Encounter for screening mammogram for malignant neoplasm of breast (principal); Z78.0 Asymptomatic menopausal state
CPT/HCPCS: 36415; 77063; 77067; 80053; 82306; 85025

== ENCOUNTER → 2023-06-18 | Outpatient (CLI) | payer MEDICARE, BC ==
--- NOTE | 2023-06-19 09:07 | MM ---
Reason for Exam: Screening (asymptomatic). Last screening mammogram was performed 12 month(s) ago. Patient History: Menarche at age 11. First Full-Term at age 19. Postmenopausal. Risk Values: Julianne 5 year model risk: 1.6%. Prior Study Comparison: 10/06/2019 Bilateral Screening Mammogram, [facility]. 03/07/2021 Bilateral Screening Mammogram, [facility]. 06/13/2022 Bilateral MG 3D screening mammo w/cad, [facility]. Tissue Density: The breasts are heterogeneously dense, which may obscure small masses. Findings: Analyzed By CAD. There is no suspicious group of microcalcifications or new suspicious mass in either breast. Benign calcifications. Overall Assessment: Benign, BI-RAD 2 Management: Screening Mammogram of both breasts in 1 year. . Patient should continue monthly self-breast exams. A clinical breast exam by your physician is recommended on an annual basis. This exam should not preclude additional follow-up of suspicious palpable abnormalities. Note on Julianne scores and lifetime risk: 1. A Julianne score greater than 3% is considered moderate risk. If this is the case, consider specialist referral to assess eligibility for a risk reducing agent. 2. If overall lifetime risk for the development of breast cancer is 20% or higher, the patient may qualify for future screening with alternating mammogram and breast MRI. Electronically signed and approved by: Ben Arnold M.D. Radiologis
== END | disposition home or self-care (01) ==
LOC: RADMAMWWP 10:50
PROVIDERS: ATTEND Family Medicine
DX: Z12.31 Encounter for screening mammogram for malignant neoplasm of breast (principal); Z78.0 Asymptomatic menopausal state
CPT/HCPCS: 77063; 77067